=== PATIENT | male | born 1940 | race American Indian/Alaskan Native ===

== ENCOUNTER → 2016-07-17 | Outpatient (CLI) | payer MEDICARE ==
[~2016-07-17] MED LIST: ASPI-496 PO; GABA300C10 PO; NAPR220T77 PO; OMEG1CAP34 PO
[2016-07-17 13:57] LABS: BLOOD UREA NITROGEN 15 mg/dL (7-18)
== END | disposition home or self-care (01) ==
LOC: STAR 12:30
PROVIDERS: ATTEND Orthopaedic Surgery
DX: Z01.818 Encounter for other preprocedural examination (principal); M17.12 Unilateral primary osteoarthritis, left knee
CPT/HCPCS: 36415; 80048; 81003; 85025; 87081; 93005

== ENCOUNTER → 2016-07-25 | Outpatient (CLI) | payer OTHER, MEDICARE ==
[~2016-07-25] MED LIST changes: +REGADENOSON 0.4 MG/5 ML SYRINGE ONE
== END | disposition home or self-care (01) ==
LOC: RAD 10:41
PROVIDERS: ATTEND Internal Medicine Cardiovascular Disease
DX: Z01.810 Encounter for preprocedural cardiovascular examination (principal); R94.31 Abnormal electrocardiogram [ECG] [EKG]
CPT/HCPCS: 78452; 93017; A9502; J2785

== ENCOUNTER 2016-07-28 06:23 | Inpatient (IN) | payer MEDICARE ==
[~2016-07-28] VITALS: Ht 167.6 cm; Wt 82.4 kg
[~2016-07-28 06:23] MED LIST changes: -REGADENOSON 0.4 MG/5 ML SYRINGE ONE
[2016-07-28] MEDS ORDERED: BUPIVACAINE/PF 0.25% ONE (06:40)
[2016-07-28] MEDS ORDERED: TRANEXAMIC ACID 100 MG/ML, 10ML ONE (06:54)
[2016-07-28] MEDS ORDERED: EPINEPHRINE 1 MG/ML, 1ML ONE (06:54)
[2016-07-28] MEDS ORDERED: KETOROLAC 60 MG/2 ML ONE (06:54)
[2016-07-28] MEDS ORDERED: ROPIvacaine/PF 0.2%, 20 ML ONE (06:54)
[2016-07-28] MEDS ORDERED: SODIUM CHLORIDE 0.9% 50 ML ONE (06:54)
[2016-07-28] MEDS ORDERED: LACTATED RINGERS 1,000 ML IV SCH (07:26)
[2016-07-28] MEDS ORDERED: FENTANYL PF 250 MCG/5ML ONE (08:20)
[2016-07-28] MEDS ORDERED: MIDAZOLAM 1 MG/ML, 2ML ONE (08:20)
[2016-07-28] MEDS ORDERED: DEXAMETHASONE 4 MG/ML, 1ML ONE (09:11)
[2016-07-28] MEDS ORDERED: PROPOFOL 10 MG/ML, 20ML ONE (09:11)
[2016-07-28] MEDS ORDERED: ONDANSETRON 2MG/ML, 2ML ONE (09:11)
[2016-07-28] MEDS ORDERED: CEFAZOLIN 1,000 MG ONE (09:11)
[2016-07-28] MEDS ORDERED: ALBUTEROL SULFATE 2.5 MG/3 ML NPPB PRN (10:00)
[2016-07-28] MEDS ORDERED: FENTANYL PF 100 MCG/2ML IV PRN (10:00)
[2016-07-28] MEDS ORDERED: ACETAMINOPHEN 325 MG TABLET PO PRN (10:00)
[2016-07-28] MEDS ORDERED: METOPROLOL 1 MG/ML, 5ML IV PRN (10:00)
[2016-07-28] MEDS ORDERED: PROMETHAZINE 25 MG/ML, 1ML IV PRN (10:00)
[2016-07-28] MEDS ORDERED: OXYcodone 5 MG/5 ML ORAL.SOL UDC PO PRN (10:00)
[2016-07-28] MEDS ORDERED: MIDAZOLAM 1 MG/ML, 2ML IV PRN (10:00)
[2016-07-28] MEDS ORDERED: LABETALOL 5MG/ML, 20ML IV PRN (10:00)
[2016-07-28] MEDS ORDERED: HYDROmorphone 1 MG/ML, 1ML IV PRN ×2 (10:00→11:00)
[2016-07-28] MEDS ORDERED: ONDANSETRON 2MG/ML, 2ML IVPush PRN (10:00)
[2016-07-28] MEDS ORDERED: EPHEDRINE 50 MG/ML, 1ML IVPush PRN (10:00)
[2016-07-28] MEDS ORDERED: hydrALAzine 20 MG/ML, 1ML IV PRN (10:00)
[2016-07-28] MEDS ORDERED: PROMETHAZINE 25 MG/ML, 1ML IM PRN (11:00)
[2016-07-28] MEDS ORDERED: MAGNESIUM HYDROXIDE 8%, 30ML UDC PO PRN (11:00)
[2016-07-28] MEDS ORDERED: ONDANSETRON 4 MG TABLET PO PRN (11:00)
[2016-07-28] MEDS ORDERED: ZOLPIDEM 5MG TABLET PO PRN (11:00)
[2016-07-28] MEDS ORDERED: ACETAMINOPHEN 650 MG/20.3 ML UDC PO PRN (11:00)
[2016-07-28] MEDS ORDERED: HYDROcodone/APAP 10/325 MG TABLET PO PRN (11:00)
[2016-07-28] MEDS ORDERED: BISACODYL 10 MG SUPP PR PRN (11:00)
[2016-07-28] MEDS ORDERED: DIPHENHYDRAMINE 50 MG CAPSULE PO PRN (11:00)
[2016-07-28] MEDS ORDERED: ONDANSETRON 2MG/ML, 2ML IV PRN (11:00)
[2016-07-28] MEDS ORDERED: DIAZEPAM 5 MG TABLET PO PRN (11:00)
[2016-07-28] MEDS ORDERED: PROMETHAZINE 12.5 MG SUPP PR PRN (11:00)
[2016-07-28] MEDS ORDERED: TRANEXAMIC ACID 1,000 MG in SODIUM CHLORIDE 0.9% 100 ML IVPB ONE (11:00)
[2016-07-28] MEDS ORDERED: SCOPOLAMINE PATCH, 1.5MG PATCH.TD72 TD SCH (11:00)
[2016-07-28] MEDS ORDERED: SENNA/DOCUSATE TABLET PO PRN (11:00)
[2016-07-28] MEDS ORDERED: ALUMINUM/MAG/SIMETHICONE 30 ML UDC PO PRN (11:00)
[2016-07-28] MEDS ORDERED: OXYcodone IR 5MG TABLET PO PRN (11:00)
[2016-07-28] MEDS ORDERED: ACETAMINOPHEN 325 MG TABLET ONE (11:01)
[2016-07-28] MEDS ORDERED: ACETAMINOPHEN 650 MG/20.3 ML UDC ONE (11:01)
[2016-07-28] MEDS ORDERED: OXYcodone 5 MG/5 ML ORAL.SOL UDC ONE (11:01)
[2016-07-28] MEDS ORDERED: HYDROmorphone 2 MG/ML, 1ML ONE (11:11)
[2016-07-28] MEDS: HYDROcodone/APAP 10/325 MG TABLET PO SCH ×3 (12:54→21:00)
[2016-07-28 15:00] VITALS: BP 132/76
[2016-07-28] MEDS: TAMSULOSIN 0.4 MG CAP.ER.24H PO SCH (16:11)
[2016-07-28 16:15] VITALS: BP 144/87
[2016-07-28] MEDS: D5%-0.45% NACL 1,000 ML IV SCH (16:30)
[2016-07-28] MEDS: CEFAZOLIN PMX 2GM/50ML 50 ML IVPB SCH (17:49)
[2016-07-28] MEDS: ASPIRIN 81 MG TABLET EC PO SCH (17:56)
[2016-07-28 21:40] VITALS: BP 136/69
[2016-07-28] MEDS: DOCUSATE 100 MG CAPSULE PO SCH (22:54)
[2016-07-28] MEDS: PREGABALIN 75 MG CAPSULE PO SCH (22:54)
[2016-07-28 23:41] VITALS: BP 132/76
[2016-07-29] MEDS: HYDROcodone/APAP 10/325 MG TABLET PO SCH ×3 (01:00→08:52)
[2016-07-29] MEDS: CEFAZOLIN PMX 2GM/50ML 50 ML IVPB SCH (02:41)
[2016-07-29 04:22] VITALS: BP 122/69
[2016-07-29] MEDS: D5%-0.45% NACL 1,000 ML IV SCH (05:50)
[2016-07-29] MEDS: ASPIRIN 81 MG TABLET EC PO SCH (05:50)
[2016-07-29] MEDS ORDERED: DEXAMETHASONE 4 MG/ML, 1ML IVPush SCH (06:00)
[2016-07-29] MEDS: DOCUSATE 100 MG CAPSULE PO SCH (08:27)
[2016-07-29] MEDS: PREGABALIN 75 MG CAPSULE PO SCH (08:27)
[2016-07-29] MEDS: TAMSULOSIN 0.4 MG CAP.ER.24H PO SCH (08:27)
[2016-07-29 08:36] VITALS: BP 144/68
[2016-07-29] MEDS ORDERED: MULTIVITAMINS/MINERALS TABLET PO SCH (09:00)
[2016-07-29] MEDS ORDERED: KETOROLAC 30 MG/1 ML IV SCH (11:00)
[2016-07-29 11:07] VITALS: BP 150/75
[2016-07-29] MEDS ORDERED: OXYC5CAP4 PO (12:06)
== END 2016-07-29 12:15 | disposition home or self-care (01) | DRG 470 ==
LOC: ORIP 06:23 → 4NOR 11:47 → DCLOUNGE 07-29 12:02
PROVIDERS: ADMIT Orthopaedic Surgery; ATTEND Orthopaedic Surgery
PROC: 0SRD0J9 Replacement of Left Knee Joint with Synthetic Substitute, Cemented, Open Approach (ICD-10-PCS; principal; 2016-07-28 09:15)
DX: M17.12 Unilateral primary osteoarthritis, left knee (principal); M21.162 Varus deformity, not elsewhere classified, left knee; M25.762 Osteophyte, left knee; I44.7 Left bundle-branch block, unspecified; Z87.891 Personal history of nicotine dependence
CPT/HCPCS: 36415; 85014; 85018; C1713; J0171; J0690; J1100; J1170; J1885; J2250; J2405; J2704; J2795; J3010; J3490; C1776; J7120

== ENCOUNTER → 2017-09-23 | Outpatient (CLI) | payer OTHER, MEDICARE ==
[~2017-09-23] MED LIST changes: +OXYC5CAP2 PO
== END | disposition home or self-care (01) ==
LOC: RAD 13:26
PROVIDERS: ATTEND Neurological Surgery
DX: M47.896 Other spondylosis, lumbar region (principal); M48.062 Spinal stenosis, lumbar region with neurogenic claudication; M99.13 Subluxation complex (vertebral) of lumbar region
CPT/HCPCS: 72110